=== PATIENT | male | born 1985 | race Caucasian/White ===

== ENCOUNTER 2018-11-04 10:14 | Emergency (ER) | payer SELFPAY ==
[2018-11-04 10:47] LABS: #Basophils 0.1 thou/uL (0.0-0.2); #Eosinphils 0.1 thou/uL (0.0-0.7); #Monocytes 0.7 thou/uL (0.11-0.59); #Neutrophils 8.2 thou/uL (1.40-6.50); %Basophils 0.5 % (0.0-1.0); %Lymphocytes 17.8 % (21.0-51.0); %Monocytes 5.9 % (0.0-10.0); %Neutrophils 74.8 % (42.0-75.0); Hemoglobin 13.3 g/dL (14.0-18.0); Mean Corpuscular Hemoglobin 31.8 pg (27.0-31.0); Mean Corpuscular Volume 93.5 fL (78.0-98.0); Mean Platelet Volume 6.6 fL (7.4-10.4); Platelet Count 282 thou/uL (130-400); RBC Distribution Width 11.9 % (11.5-14.5); Red Blood Cell (RBC) Count 4.18 mill/uL (4.70-6.10)
[2018-11-04] MEDS ORDERED: Lidocaine 1% PF 5 ML VIAL ONE (10:49)
[2018-11-04] MEDS ORDERED: cefTRIAXone\\ROCEPHIN 1 GM VIAL ONE (10:49)
[2018-11-04 11:12] LABS: ALT (SGPT) 16 U/L (8-55); AST (SGOT) 19 U/L (5-34); Albumin 4.4 g/dL (3.5-5.0); Alkaline Phosphatase 90 U/L (40-150); Anion Gap 11 mmol/L (10-20); BUN (Urea Nitrogen) 11 mg/dL (8.9-20.6); Bilirubin, Total 0.4 mg/dL (0.2-1.2); Calc. Creatinine Clearance 0 mL/min (70-130); Calcium 9.4 mg/dL (7.8-10.44); Carbon Dioxide 24 mmol/L (22-29); Chloride 105 mmol/L (98-107); Estimated GFR-MDRD Greater than 90; Globulin 3.5 g/dL (2.4-3.5); Glucose 102 mg/dL (70-105); Potassium 4.1 mmol/L (3.5-5.1); Protein, Total 7.9 g/dL (6.0-8.3); Sodium 136 mmol/L (136-145)
--- NOTE | 2018-11-04 12:22 | RAD ---
PORTABLE AP CHEST XRAY: DATE: 11/04/2018. HISTORY: Cough, chills, body aches. COMPARISON: None available. FINDINGS: There is suboptimal evaluation of the retrocardiac region of the left lung base due to technique. Th ere is a questionable patchy density at the left lung base, but this may be artifactual. However, gi jace that pneumonia could not be entirely excluded, a PA and lateral chest x-ray is recommended. The lungs are otherwise clear. The cardiac silhouette and pulmonary vasculature are within normal limits . Osseous structures are intact. IMPRESSION: Questionable patchy density left lung base. However, this may be artifactual due to under penetrated technique and depth of inspiration; a PA and lateral chest x-ray is recommended for further evaluati on. POS: [facility]
== END 2018-11-04 11:35 | disposition home or self-care (01) ==
LOC: ERS 10:14
DX: J20.9 Acute bronchitis, unspecified (principal); R50.9 Fever, unspecified; F17.210 Nicotine dependence, cigarettes, uncomplicated
CPT/HCPCS: 36415; 71045; 80053; 85025; 87081; 87430; 87804; 96372; J0696; J2001